=== PATIENT | female | born 1985 | race Hispanic/Latino ===

== ENCOUNTER 2018-02-06 09:47 | Emergency (ER) | payer OTHER ==
--- NOTE | 2018-02-06 10:33 | EDPHYS ---
Physician Documentation [facility] Name: Sarahy Morris Age: 32 yrs Sex: Female : 1985 Arrival Date: 02/06/2018 Time: 09:50 Bed 19 Private MD: ED Physician Gasper Chávez HPI: 02/06 10:30 This 32 yrs old Female presents to ER via Ambulatory with complaints of Right pm1 Eyelid Swelling. 10:30 The patient is experiencing pain, to the right eye, caused by an unknown mechanism. pm1 Onset: The symptoms/episode began/occurred 2 day(s) ago. Duration: the symptoms are continuous. Aggravated by nothing. Alleviated by nothing. Associated signs and symptoms: Pertinent negatives: chills, fever. Patient Does not wear contacts. Patient is supposed to use glasses. Severity of symptoms: in the emergency department the symptoms are worse. The patient has not experienced similar symptoms in the past. The patient has not recently seen a physician, out of town. Patient with swelling to right eyelid for the past two days. Patient has been applying warm compresses and has been using her mother's erythromycin ophthalmic for a similar eye infection. Patient does not wear contacts. 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 - Social history:: Patient/guardian denies using alcohol, street drugs, tobacco products, Smoking status: Patient/guardian denies using tobacco. ROS: 10:30 Constitutional: Negative for fever, chills, and weight loss. pm1 10:30 ENT: Negative for injury, pain, and discharge, Neck: Negative for injury, pain, and swelling, Cardiovascular: Negative for chest pain, palpitations, and edema, Respiratory: Negative for shortness of breath, cough, wheezing, and pleuritic chest pain, Abdomen/GI: Negative for abdominal pain, nausea, vomiting, diarrhea, and constipation, Back: Negative for injury and pain, MS/Extremity: Negative for injury and deformity, Skin: Negative for injury, rash, and discoloration, Neuro: Negative for headache, weakness, numbness, tingling, and seizure. 10:30 Eyes: Positive for discharge, foreign body sensation, pain, swelling, of the right upper eyelid, Negative for blurry vision, photophobia, visual disturbance. Exam: 11:00 Visual Acuity: I have reviewed the nursing documentation. pm1 11:00 Constitutional: This is a well developed, well nourished patient who is awake, alert, pm1 and in no acute distress. Head/Face: Normocephalic, atraumatic. 11:00 ENT: Nares patent. No nasal discharge, no septal abnormalities noted. Tympanic membranes are normal and external auditory canals are clear. Oropharynx with no redness, swelling, or masses, exudates, or evidence of obstruction, uvula midline. Mucous membranes moist. Neck: Trachea midline, no thyromegaly or masses palpated, and no cervical lymphadenopathy. Supple, full range of motion without nuchal rigidity, or vertebral point tenderness. No Meningismus. Chest/axilla: Normal chest wall appearance and motion. Nontender with no deformity. No lesions are appreciated. Cardiovascular: Regular rate and rhythm with a normal S1 and S2. No gallops, murmurs, or rubs. Normal PMI, no JVD. No pulse deficits. Respiratory: Lungs have equal breath sounds bilaterally, clear to auscultation and percussion. No rales, rhonchi or wheezes noted. No increased work of breathing, no retractions or nasal flaring. Skin: Warm, dry with normal turgor. Normal color with no rashes, no lesions, and no evidence of cellulitis. MS/ Extremity: Pulses equal, no cyanosis. Neurovascular intact. Full, normal range of motion. 11:00 Eyes: Periorbital structures: appear normal, no abrasion, no cellulitis, no erythema, Pupils: no acute changes, equal, round, and reactive to light and accomodation, Extraocular movements: No pain, Conjunctiva: injected, in the right eye, Corneas: are normal, no evidence of abrasion, no foreign body, abrasion, is not appreciated, foreign body, is not appreciated, a fluorescein strip employed to appreciate the findings, Sclera: no appreciated abnormality, Lids and lashes: stye, is not appreciated, Right upper eyelid swelling. Examination of the other eye reveals no obvious gross abnormality. 11:00 Neuro: Orientation: is normal, Motor: is normal, moves all fours, Gait: is steady, at a normal pace, without difficulty. Vital Signs: 09:56 BP 139 / 92; Pulse 88; Resp 18; Temp 99.1(O); Pulse Ox 97% on R/A; Pain 7/10; tl3 Visual Acuity: 10:47 Left Eye Visual acuity 20/13, ; Right Eye Visual acuity 20/15, ; Both Eyes Visual em acuity 20/13; Without Lenses; MDM: 10:03 Patient medically screened. pm1 10:26 Data reviewed: vital signs. Data interpreted: Pulse oximetry: on room air is 97 %. pm1 Interpretation: normal. Counseling: I had a detailed discussion with the patient and/or guardian regarding: the historical points, exam findings, and any diagnostic results supporting the discharge/admit diagnosis, the need for outpatient follow up, for definitive care, an opthalmologist, to return to the emergency department if symptoms worsen or persist or if there are any questions or concerns that arise at home. 02/06 10:42 Order name: Visual Acuity; Complete Time: 10:47 pm1 02/06 10:42 Order name: Eye Tray; Complete Time: 10:47 pm1 02/06 10:42 Order name: Fluoresene Opth strip; Complete Time: 10:48 pm1 Administered Medications: 10:48 Drug: Tetracaine Drops 0.5 % 1 drops {Note: administered by NP. Arjun} Route: em Ophthalmic; Site: right eye; 11:00 Follow up: Response: No adverse reaction em 10:51 Drug: Tylenol #3 (300 mg-30 mg) 1 tablet Route: PO; hj 10:53 Follow up: Response: No adverse reaction; Pain is decreased hj 11:00 Follow up: Response: No adverse reaction em Disposition: 02/07 07:15 Co-signature as Attending Physician, Gasper Chávez MD. ma2 Disposition: 02/06/18 10:33 Discharged to Home. Impression: Blepharitis. - Condition is Stable. - Discharge Instructions: Blepharitis. - Prescriptions for Zithromax Z- Shaquille 250 mg Oral Tablet - take 1 tablet by ORAL route as directed for 5 days Day 1 - take two (2) tablets one time. Day 2, 3, 4 , 5 take one (1) tablet once daily.; 6 tablet. Bacitracin 500 unit/gram Ophthalmic Ointment - instill 0.5 inch by OPHTHALMIC route every 6 hours; 3.5 tube. Tylenol- Codeine #3 300-30 mg Oral Tablet - take 1 tablet by ORAL route every 6 hours As needed; 15 tablet. - Medication Reconciliation Form, Thank You Letter, Antibiotic Education form. - Follow up: Jessi Herr MD; When: 2 - 3 days; Reason: Recheck today's complaints, Continuance of care, Re-evaluation by your physician. - Problem is new. - Symptoms have improved. Signatures: Navjot Laguna, OIL EXPELLER OIL EXPELLER Jay Augustine RN RN hj Arjun España NP WELLNESS GUIDE pm1 Gasper Chávez MD MD ma2 Paula Shah, RN RN tl3
--- NOTE | 2018-02-06 10:33 | ER ---
Nurse's Notes [facility] Name: Sarahy Morris Age: 32 yrs Sex: Female : 1985 Arrival Date: 02/06/2018 Time: 09:50 Bed 19 Private MD: Diagnosis: Blepharitis Presentation: 02/06 09:56 Presenting complaint: Patient states: right eye swelling, started two days ago, no tl3 injury noted. Transition of care: patient was not received from another setting of care. Onset of symptoms was February 04, 2018. Care prior to arrival: Medication(s) given: eye drops. 09:56 Method Of Arrival: Ambulatory tl3 09:56 Acuity: EVELYNE 3 tl3 Triage Assessment: 09:59 General: Appears in no apparent distress. comfortable, well groomed, well developed, tl3 well nourished, Behavior is calm, cooperative, appropriate for age. Pain: Complains of pain in right eye Pain currently is 7 out of 10 on a pain scale. 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 - Social history:: Patient/guardian denies using alcohol, street drugs, tobacco products, Smoking status: Patient/guardian denies using tobacco. Screenin:19 Abuse screen: Denies threats or abuse. Nutritional screening: No deficits noted. em Tuberculosis screening: No symptoms or risk factors identified. Fall Risk None identified. Assessment: 10:00 General: Appears in no apparent distress. comfortable, Behavior is calm, cooperative. em Pain: Complains of pain in right eye Pain currently is 7 out of 10 on a pain scale. Quality of pain is described as pressure, Pain began 2-3 days ago. Neuro: Level of Consciousness is awake, alert, obeys commands, Oriented to person, place, time, situation. Cardiovascular: Capillary refill < 3 seconds Patient's skin is warm and dry. Respiratory: Airway is patent Respiratory effort is even, unlabored, Respiratory pattern is regular, symmetrical. GI: Abdomen is round. : No signs and/or symptoms were reported regarding the genitourinary system. EENT: Eyes mild swelling noted around right eye, denies blurry vision, only pain. Derm: Skin is intact, Skin is pink, warm \T\ dry. Musculoskeletal: Range of motion: intact in all extremities. 10:00 Injury Description: denies injury to right eye. em Vital Signs: 09:56 BP 139 / 92; Pulse 88; Resp 18; Temp 99.1(O); Pulse Ox 97% on R/A; Pain 7/10; tl3 Visual Acuity: 10:47 Left Eye Visual acuity 20/13, ; Right Eye Visual acuity 20/15, ; Both Eyes Visual em acuity 20/13; Without Lenses; ED Course: 09:50 Patient arrived in ED. rg4 09:58 Triage completed. tl3 10:03 Arjun España NP is PHCP. pm1 10:03 Gasper Chávez MD is Attending Physician. pm1 10:04 Navjot Laguan LVN is Primary Nurse. em 10:19 Patient has correct armband on for positive identification. Bed in low position. Call em light in reach. Side rails up X2. 10:19 Arm band placed on. em 10:19 No provider procedures requiring assistance completed. Patient did not have IV access em during this emergency room visit. 10:27 Jessi Herr MD is Referral Physician. pm1 Administered Medications: 10:48 Drug: Tetracaine Drops 0.5 % 1 drops {Note: administered by MOLLY Díaz.} Route: em Ophthalmic; Site: right eye; 11:00 Follow up: Response: No adverse reaction em 10:51 Drug: Tylenol #3 (300 mg-30 mg) 1 tablet Route: PO; hj 10:53 Follow up: Response: No adverse reaction; Pain is decreased hj 11:00 Follow up: Response: No adverse reaction em Outcome: 10:33 Discharge ordered by MD. pm1 11:01 Patient left the ED. em Signatures: Navjot Laguna LVN LVN em Jay Garcia RN RN Arjun España NP DRONE PILOT pm1 Mignon Larson rg4 Paula Shah RN RN tl3
[2018-02-06] MEDS ORDERED: FLUORESCEIN SODIUM 0.6 MG/WRAP ONE (11:02)
[2018-02-06] MEDS ORDERED: TETRACAINE HCL 0.5% 2ML OPTH ONE (11:02)
[2018-02-06] MEDS ORDERED: CODEINE 30MG/APAP 300MG TAB ONE (11:11)
== END 2018-02-06 11:01 | disposition home or self-care (01) ==
LOC: ER 09:47
DX: H01.003 Unspecified blepharitis right eye, unspecified eyelid (principal)
CPT/HCPCS: 99283